=== PATIENT | male | born 1960 | race Caucasian/White ===

== ENCOUNTER → 2017-06-02 | Outpatient (CLI) | payer BC | END | disposition home or self-care (01) | LOC: CDC 10:07 | DX: I44.7 Left bundle-branch block, unspecified (principal); R94.31 Abnormal electrocardiogram [ECG] [EKG] | CPT/HCPCS: 93000 ==

== ENCOUNTER 2017-06-16 11:38 | Day surgery (SDC) | payer BC ==
[~2017-06-16] VITALS: Ht 170.2 cm; Wt 80.2 kg
[~2017-06-16 11:38] MED LIST: ASCORBIC ACID500 M3 PO; COQ1050 MG PO; ONE DAILY FOR1 EAC2 PO; VITAMIN E400 UNIT PO
[2017-06-16 12:52] VITALS: BP 181/99
[2017-06-16] MEDS ORDERED: NORCO 5/3251 TABLET PO (15:43)
[2017-06-16 16:46] VITALS: BP 143/80
[2017-06-16 17:28] VITALS: BP 145/80
== END 2017-06-16 17:47 | disposition home or self-care (01) ==
LOC: SDC 11:38
PROC: 0YU50JZ Supplement Right Inguinal Region with Synthetic Substitute, Open Approach (ICD-10-PCS; principal; 2017-06-16)
DX: K40.90 Unilateral inguinal hernia, without obstruction or gangrene, not specified as recurrent (principal); I10 Essential (primary) hypertension; E66.9 Obesity, unspecified; Z68.35 Body mass index [BMI] 35.0-35.9, adult; K21.9 Gastro-esophageal reflux disease without esophagitis; Z85.828 Personal history of other malignant neoplasm of skin; Z82.49 Family history of ischemic heart disease and other diseases of the circulatory system
CPT/HCPCS: C1781; J0131; J0690; J1100; J1170; J1885; J2250; J2405; J2710; J3010